=== PATIENT | male | born 1980 | race African-American/Black ===

== ENCOUNTER 2022-04-07 20:44 | Emergency (ER) | payer MEDICAID, SELFPAY ==
[2022-04-07 20:45] VITALS: BP 134/78; PULSE 88; RESP 16; TEMP 37.2; O2SAT 97; BMI 20.9
--- NOTE | 2022-04-07 21:03 | EDS_ITS ---
HPI History of Present Illness Chief Complaint: Laceration Detail of Chief Complaint: Avulsion tip of left index finger volar surface Informant: patient Onset/Context/Timing Onset: Yesterday Context: Sudden Onset Timing: Intermittent Quality of Pain: Dull Current Severity: Gone Maximum Severity: Mild Associated Symptoms Associated Symptoms: Negative for Parasthesia, Weakness or Loss of Funtion Narrative Narrative: Presents because of persistent bleeding volar fat pad left index finger. He was cutting potatoes at home and this happened. Tetanus is unknown. Denies paresthesia, anesthesia or motor weakness. Tetanus Immunization: Unknown Prior similar symptoms: No Recent Illness/Hospitalization: No PFSH PFSH Medical History no medical history no medical history Allergy/AdvReac Type Severity Reaction Status Date / Time No Known Allergies Allergy Verified 04/07/22 20:47 Surgical History History of knee surgery Social History (Updated 04/07/22 @ 21:[address] Balaji Nicole MD) household members: none Smoking Status: Current every day smoker tobacco type: cigarettes substance use type: does not use ROS ROS ED Constitutional Constitutional ED: Denies chills or fever(s) Musculoskeletal Musculoskeletal: Denies arthralgias, back pain, myalgias or neck pain Integumentary Reports other Details: Skin avulsion volar side left index finger Neurologic Neurologic: Denies paresthesias or weakness Psychiatric Psychiatric: Denies anxiety or depression Hematologic/Lymphatic Hematologic/Lymphatic: Denies easy bleeding, easy bruising or lymphadenopathy EXAM Physical Exam Const Vital Signs: 04/07/22 20:45 Temperature 98.9 F Temperature Source Temporal Pulse Rate 88 Respiratory Rate 16 Blood Pressure 134/78 H Blood Pressure Mean 96 Pulse Ox 97 Oxygen Delivery Method Room Air Positive well nourished and well developed General Appearance ED: well developed and NAD HEENT Reports moist mucous membranes normocephalic and atraumatic Eyes PERRL Eyes Narrative: Extract muscles intact sclerae anicteric Neck full ROM Resp normal respiratory effort Cardio regular rate and regular rhythm Extremity full ROM; Negative for normal to inspection Extremity Narrative: The extensor commonest tendon is intact. The flexor digitorum superficialis and flexor to toward profundus are intact. Normal two-point discrimination. No subungual hematoma noted. There is avulsed tissue radial volar side of the left index finger that is 3 x 6 mm. Presently there is no active bleeding. Neuro oriented x3, CN's II-XII intact bilaterally and moves all extremities Sensorium / Orientation: alert Psych mental status grossly normal Skin Skin Narrative: Avulsion as previously described no evidence of infection MDM MDM MDM Narrative Medical decision making narrative: Patient with avulsion tip of the index finger. Wound care and tetanus. Discharge Plan Triage Chief Complaint: Laceration ED Provider: Balaji Nicole Dx/Rx/DC Orders Clinical Impression: Avulsion of finger tip Instructions: ED Skin Avulsion Primary Care Provider: Care Physician,No Primary Referrals: Susie Melgar [Non-Staff] - As Needed Care Physician,No Primary [Primary Care Provider] - Activity Restrictions/Additional Instructions: 1. Do not remove dressing for 48 to 72 hours 2. Keep finger absolutely clean and dry for the next 3 days 3. There is any concern for infection do not hesitate to return or follow-up at the [facility] Disposition Disposition: Home, Self Care
[2022-04-07] MEDS: Diphth,Pertuss(Acell),Tet Vac 0.5 ML Vial IM (21:16)
== END 2022-04-07 21:29 | disposition home or self-care (01) ==
PROVIDERS: Emergency Provider Emergency Medicine; Visit Provider Emergency Medicine
DX: S61.211A Laceration without foreign body of left index finger without damage to nail, initial encounter (principal); F17.210 Nicotine dependence, cigarettes, uncomplicated; Z23 Encounter for immunization; X58.XXXA Exposure to other specified factors, initial encounter
CPT/HCPCS: 90715; 99282

== ENCOUNTER 2022-09-24 12:23 | Emergency (ER) | payer MEDICAID, SELFPAY ==
[2022-09-24 12:24] VITALS: BP 128/85; PULSE 60; RESP 18; TEMP 36; O2SAT 100; BMI 21.9
--- NOTE | 2022-09-24 12:39 | EDS_ITS ---
HPI HPI - GI History of Present Illness Chief Complaint: GI Bleed Detail of Chief Complaint: Abdominal cramping. Bright red blood with stool. Informant: patient Abdominal Pain/Flank Pain Onset: Today and Weeks Context: Gradual Onset Timing: Intermittent Quality: Cramping Location: Diffuse Current Severity: Gone Maximum Severity: Mild Worsened by: Nothing Relieved by: Nothing Nausea/Vomiting/Emesis GI Symptom: Negative for Nausea or Vomiting Diarrhea/Melena/Hematochezia GI Symptom: Positive for Diarrhea and Hematochezia Associated Symptoms Associated Symptoms: Negative for Dysuria, Frequency, Hematuria or Urgency Narrative Narrative: 42-year-old male no seen past medical or surgical history. States has had intermittent abdominal cramping for weeks. Last night he noticed a small amount of blood with loose stools. No melena. No hematemesis. No nausea or vomiting. No weight change. He has never had any abdominal surgeries. Denies any dysuria. No fever. Prior similar symptoms: Yes Recent Illness/Hospitalization: No PFSH PFSH Medical History no medical history no medical history Home Medications NK 09/24/22 [History Last Taken Unknown] Allergy/AdvReac Type Severity Reaction Status Date / Time No Known Allergies Allergy Verified 09/24/22 12:25 Family History no significant family his Surgical History History of knee surgery Social History household members: none Smoking Status: Current every day smoker tobacco type: cigarettes substance use type: does not use ROS ROS ED ROS Narrative Abdominal cramping. Diarrhea. Bright red blood per rectum small amount today. Review of Systems ROS Unobtainable: Denies due to encephalopathy Constitutional Constitutional ED: Denies chills or fever(s) ENT ENT ED: Denies ear pain Cardiovascular Cardiovascular: Denies chest pain Respiratory/Chest Respiratory/Chest: Denies cough or dyspnea Gastrointestinal Gastrointestinal: Reports abdominal pain and diarrhea; Denies constipation, melena, nausea or vomiting Genitourinary Genitourinary ED: Denies dysuria or hematuria Musculoskeletal Musculoskeletal: Denies arthralgias or back pain Integumentary Denies abscess or Abrasions Neurologic Neurologic: Denies headache(s) Psychiatric Psychiatric: Denies anxiety Endocrine Endocrinology: Denies polydipsia Hematologic/Lymphatic Hematologic/Lymphatic: Denies easy bleeding Allergic/Immunologic Allergic/Immunologic ED: Denies mouth swelling or tongue swelling EXAM Physical Exam Narrative Exam Narrative: -year-old male ambulatory distress. Vital signs stable afebrile. Right knee exam did have marked. He acknowledges an epicondylitis clear to auscultation bilaterally. Heart regular rhythm rate about 60 no murmur. Abdomen soft, nontender, nondistended, normal bowel sounds no peritoneal signs. No hernia or mass. No right upper or right lower quadrant tenderness. Moving all 4 extremities. Nontender no edema. Back nontender. Neurologically is awake alert. Normal exam. Anal exam he has 1 very small hemorrhoid that is nontender. Nonthrombosed. Not bleeding. Const Vital Signs: 09/24/22 12:24 Temperature 96.8 F L Temperature Source Temporal Pulse Rate 60 Respiratory Rate 18 Blood Pressure 128/85 H Blood Pressure Mean 99 Pulse Ox 100 Oxygen Delivery Method Room Air Positive well nourished and well developed; Negative for obese, cachectic, contractures or unkempt General Appearance ED: well developed and NAD; Negative for unkempt, cachectic, contractures or pallor Nutritional Appearance: Negative for cachectic or obese HEENT Reports moist mucous membranes; Denies dry mucous membranes normocephalic and atraumatic; Negative for trauma or tenderness Mouth ED: No dry mucous membranes Mouth: No dry mucous membranes Eyes PERRL and EOMs intact bilaterally General Eye ED: Negative for pale conjunctiva or scleral icterus Neck no lymphadenopathy, supple and no JVD General: Negative for tenderness Carotids: Negative for other Lymph Lymphatic: Negative for other Resp normal respiratory effort and clear to auscultation bilaterally Effort and Inspection: Negative for respiratory distress Auscultation: Negative for rales, rhonchi or wheezes Cardio regular rate, regular rhythm, S1 normal heart sound, S2 normal heart sound and no murmurs Rate: Negative for bradycardia or tachycardic Rhythm: Negative for abnormal rhythm GI non-tender, non-distended and no masses Inspection: Negative for abdominal distention Auscultation: normoactive bowel sounds Palpation: soft; Negative for tender, guarding, rigid, hepatomegaly, splenomegaly, hernia, mass, pulsatile mass or rebound tenderness present Back/Spine no CVA tenderness General Back: Negative for CVA tenderness Cervical Spine: Negative for cervical spine tenderness Thoracic Spine / Upper Back: Negative for thoracic spinal tenderness Lumbar Spine / Lower Back: Negative for lumbar spinal tenderness Coccyx: Negative for other Extremity full ROM General Extremety ED: Negative for edema or tenderness General Extremity: Negative for edema Neuro CN's II-XII intact bilaterally Sensorium / Orientation: alert, oriented to person, oriented to place, oriented to time and orientation impaired; Negative for confused, lethargic or stuporous Motor Exam: strength 5/5 throughout Psych mental status grossly normal and thought process normal Appearance: Negative for unkempt Attitude: No agitated Mood & Affect: Negative for depressed Skin no wounds General Skin Exam: Negative for jaundice or pallor Lesions: no lesions Rashes: no rashes Trauma: Negative for abrasion Nails: Negative for discolored MDM MDM MDM Narrative Medical decision making narrative: Young male with crampy abdominal pain. Loose stools and diarrhea and bright red blood last night. Small amount. Exam benign. Screening labs to be obtained. Patient's inflammatory bowel disease is in the differential. He does not need imaging at this time. This clinically is not appendicitis or gallbladder disease. Labs are being obtained. Repeat exam at 1:51 PM patient doing well. Abdomen is benign. He was treated with some Zofran for nausea and Toradol for discomfort. His abdomen is completely benign at this time. He and I discussed all his test results. To be discharged home with outpatient follow-up. He has no primary care physician will be referred to [facility]. Lab Data Attestation: I reviewed the patient's lab results. Lab results narrative: CBC normal white count 6.9. H&H of 14.4 and 41. Platelets 198. Electrolytes unremarkable gap of 4 normal BUN of 10 creatinine 0.8. Normal liver enzymes. Lipase is only 59. Labs: Laboratory Results - last 24 hr 09/24/22 09/24/22 12:45 12:45 WBC 6.9 RBC 4.51 L Hgb 14.4 Hct 41.1 MCV 91.1 MCH 31.9 MCHC 35.0 RDW Std Deviation 46.2 H RDW Coeff of Daren 13.6 Plt Count 198 MPV 10.8 Immature Gran % (Auto) 0.100 Neut % (Auto) 63.3 Lymph % (Auto) 25.0 [place] % (Auto) 9.4 Eos % (Auto) 1.9 Baso % (Auto) 0.3 Absolute Neuts (auto) 4.4 Absolute Lymphs (auto) 1.73 Nucleated RBC % 0 Sodium 141 Potassium 4.1 Chloride 109 H Carbon Dioxide 28.0 Anion Gap 4 L BUN 10 Creatinine 0.82 Estim Creat Clear Calc 120.62 Est GFR (MDRD) Af Amer 133 Est GFR (MDRD) Non-Af 110 BUN/Creatinine Ratio 12.2 Glucose 99 Calcium 8.7 Total Bilirubin 0.20 AST 14 L ALT 19 Alkaline Phosphatase 38 L Total Protein 6.7 Albumin 3.6 Globulin 3.1 Albumin/Globulin Ratio 1.2 Lipase 59 L Discharge Plan Triage Chief Complaint: GI Bleed ED Provider: Adam Joseph Dx/Rx/DC Orders Clinical Impression: Abdominal pain Instructions: Abdominal Pain Prescriptions: No Action NK Primary Care Provider: Care Physician,No Primary Referrals: Khoi Knott MD [Med Staff - Medical Billing Coder] - As soon as possible Care Physician,No Primary [Primary Care Provider] - Activity Restrictions/Additional Instructions: All your lab work was unremarkable today. Call and follow-up with [facility], Dr. Khoi Knott's office to be set up for an appointment to obtain a primary care physician. Disposition Disposition: Home, Self Care
[2022-09-24 12:58] LABS: Absolute Lymphocyte Count 1.73 X10^3/uL (0.83-4.51); Absolute Neutrophil Count 4.4 X10^3/uL (2.0-7.7); Basophil# 0.02 X10^3/uL; Basophil% 0.3 % (0-1); Eosinophil# 0.13 X10^3/uL; Eosinophils% 1.9 % (0-5); Hematocrit 41.1 % (40-54); Hemoglobin 14.4 g/dL (13.0-16.5); Lymphocyte # 1.73 X10^3/ul (0.83-4.51); Mean Corpuscular Hgb 31.9 pg (27.0-32.0); Mean Corpuscular Volume 91.1 fL (80-94); Mean Platelet Vol. 10.8 fl (6.2-12.0); Monocyte# 0.65 X10^3/uL; Monocyte% 9.4 % (0-10); NRBC Flagged by Analyzer 0 % (0-5); Neutrophil # 4.39 X10^3/uL (2.7-7.7); Neutrophil % 63.3 % (47-70); Platelet Count 198 K/mm3 (150-450); RBC Distribution Width CV 13.6 % (11.6-14.6); RBC Distribution Width SD 46.2 fl (35.1-43.9); Red Blood Count 4.51 M/mm3 (4.6-6.2); White Blood Count 6.9 K/mm3 (4.4-11.0)
[2022-09-24 13:14] LABS: ALB/GLOB Ratio 1.2 RATIO (0.9-2.4); AST(SGOT) 14 U/L (15-37); Alanine Aminotransfer ALT/SGPT 19 U/L (16-61); Albumin, Serum 3.6 g/dL (3.2-5.0); Alkaline Phosphatase 38 U/L (45-117); Anion Gap 4 (5-15); BUN 10 mg/dL (7-18); BUN/Creat Ratio 12.2 RATIO (10-20); Calcium,Total 8.7 mg/dL (8.5-10.1); Chloride 109 mmol/L (98-107); Creatinine, Serum 0.82 mg/dL (0.70-1.30); EST Glomerular Filtration Rate 110 mL/min (>60); Est Glom Filt Rate - Afr Amer 133 mL/min (>60); Estimated Creatinine Clearance 120.62 ml/min; Globulin 3.1 g/dL (2.2-4.2); Glucose 99 mg/dL (74-106); Lipase 59 U/L (73-393); Potassium 4.1 mmol/L (3.5-5.1); Protein, Total 6.7 g/dL (6.4-8.2); Sodium Level 141 mmol/L (136-145)
[2022-09-24] MEDS: Ondansetron 4 MG/2 ML Vial IV (13:22)
[2022-09-24] MEDS: Ketorolac 15 MG/ML Vial IV (13:22)
== END 2022-09-24 14:01 | disposition home or self-care (01) ==
PROVIDERS: Emergency Provider Emergency Medicine; Visit Provider Emergency Medicine
DX: R10.9 Unspecified abdominal pain (principal); K92.2 Gastrointestinal hemorrhage, unspecified; F17.210 Nicotine dependence, cigarettes, uncomplicated
CPT/HCPCS: 80053; 83690; 85025; 96374; 96375; 99283; A4216; J2405

== ENCOUNTER 2025-08-13 13:32 | Emergency (ER) | payer MEDICAID, SELFPAY ==
[2025-08-13 13:33] VITALS: BP 111/71; PULSE 82; RESP 14; TEMP 36.5; O2SAT 96; BMI 22.1
--- NOTE | 2025-08-13 16:58 | EX.ED.DYSGE1 ---
HPI History of Present Illness Chief Complaint: Wound Informant: patient Narrative Narrative: Patient is a 45-year-old male with no significant PMHx presenting with a bubble near the anus and rectal bleeding. - Reports discomfort around the anus for one week, with a noticeable bubble for four days. Describes the sensation as more uncomfortable than painful, though it can become painful at times, like when sitting certain ways. - Denies any discharge or bleeding from the bubble. - Reports rectal bleeding after bowel movements but not mixed in, described as mild amt red blood dripping after defecation, ongoing and intermittent for approximately six months. - Denies abdominal pain, syncope, or recent constipation with hard stools. Denies straining during bowel movements. No known history of hemorrhoids. - History of heavy alcohol consumption, which he associated with occasional rectal bleeding; has reduced alcohol intake recently and has not observed bleeding related to this. - No history of endoscopic evaluation; denies any other significant health issues. PFSH PFSH no medical history Home Medications ?Medication ?Instructions ?Recorded ?Last Taken ?Type hydrocortisone 2.5 % topical cream 1 applic [place] QHS PRN hemorrhoids 08/13/25 Unknown Rx with perineal applicator #30 grams (Proctosol HC) Allergy/AdvReac Type Severity Reaction Status Date / Time No Known Allergies Allergy Verified 08/13/25 13:33 Family History no significant family his Surgical History History of knee surgery Social History household members: none Smoking Status: Current every day smoker tobacco type: cigarettes substance use type: does not use ROS ROS ED Constitutional Constitutional ED: Denies chills or fever(s) Eyes Eyes: Denies change in vision or diplopia ENT ENT ED: Denies rhinorrhea or sore throat Cardiovascular Cardiovascular: Denies chest pain, lightheadedness, palpitations or syncope Respiratory/Chest Respiratory/Chest: Denies cough or dyspnea Gastrointestinal Gastrointestinal: Reports as per HPI and rectal bleeding; Denies abdominal pain, diarrhea, nausea or vomiting Genitourinary Genitourinary ED: Denies dysuria or hematuria Musculoskeletal Musculoskeletal: Denies back pain or neck pain Integumentary Denies abscess or rash Neurologic Neurologic: Denies headache(s), paresthesias or weakness Psychiatric Psychiatric: Denies anxiety or suicidal thoughts EXAM Physical Exam Const Vital Signs: 08/13/25 13:33 Temperature 97.7 F L Temperature Source Temporal Pulse Rate 82 Respiratory Rate 14 Blood Pressure 111/71 Blood Pressure Mean 84 Pulse Ox 96 Oxygen Delivery Method Room Air Positive well nourished and well developed General Appearance ED: well developed and NAD HEENT Reports moist mucous membranes normocephalic and atraumatic Eyes PERRL and EOMs intact bilaterally Neck full ROM and supple Resp normal respiratory effort GI non-tender and non-distended Auscultation: normoactive bowel sounds Palpation: soft Narrative: On rectal exam, there is a very small subcentimeter nonbleeding nonthrombosed nontender external hemorrhoid at the 9 o'clock position. No fissures or other abnormalities. No other perianal tenderness. Extremity normal to inspection Neuro oriented x3, CN's II-XII intact bilaterally and no sensory deficits noted Sensorium / Orientation: awake and alert Motor Exam: strength 5/5 throughout Skin no rashes or lesions noted and no wounds MDM MDM MDM Narrative Medical decision making narrative: Assessment: The patient is a 45-year-old male presenting for a small perianal ?bubble? and intermittent bright-red bleeding noted after bowel movements for approximately six months. Exam shows a pea-sized, non-thrombosed external hemorrhoid without active bleeding; no abdominal pain, syncope, or other symptoms suggestive of significant anemia. Presentation and exam are most consistent with external hemorrhoid?related bleeding; not likely to be infectious/abscess since really nontender. While another colonic source of intermittent rectal bleeding cannot be excluded without endoscopic evaluation, current findings and history favor hemorrhoidal etiology, and absence of concerning features obviates emergent laboratory work today. Plan: - Prescribed rectal hydrocortisone 1% cream with applicator; instruct to apply internally and externally once or twice daily for 1?2 weeks. - Provided hemorrhoid care education, including avoidance of straining and heavy lifting. - No emergent lab work indicated given lack of anemia symptoms. - Referred for outpatient follow-up with Dr. Gonzalez (unassigned PCP list) for further evaluation if bleeding persists or worsens. - Discharged home in stable condition. Portions of this note were generated using voice recognition software ([employer]). I have reviewed the contents and every effort has been made to ensure accuracy; however, inadvertent errors in grammar, spelling, punctuation, or word choice may occur, that were not noted before signing the document and should not alter the intended clinical meaning. Discharge Plan Triage Chief Complaint: Wound ED Provider: Candido Hernandez Dx/Rx/DC Orders Clinical Impression: External hemorrhoids without complication, Painless rectal bleeding Instructions: ED Hemorrhoids Prescriptions: New hydrocortisone [Proctosol HC] 2.5 % cream with perineal applicator 1 applic [place] QHS PRN (Reason: hemorrhoids) Qty: 30 0RF Primary Care Provider: Care Physician,No Primary Referrals: Prem Gonzalez DO [Med Staff - Supervisor [facility]] Print Language: Turkish Disposition Disposition: Home, Self Care
--- OUTSIDE RECORDS SUMMARY | 2025-08-13 17:10 | XMS RPT_ITS | CCD ---
Author Organization [facility] Care Team Providers Care Elevator Builder Name Role Phone ANIKA VICENTE Unavailable Unavailable Unavailable Primary Care Provider Adam Mendoza Attending Unavailable Care Physician, No Primary Primary Care Unava ilable Nicole, Balaji Attending Unavailable Care Physician, No Primary Primary Care Unava ilable Medications Current Medications Medication Drug Class(es) Dates Sig (Normalized) Sig (Original) doxycycline monohydrate 100 mg oral capsule (3 sources) Tetracycline-clas s Drug Start: 12-27-2021 End: 01-03-2022 take 1 capsule by mouth twice daily doxycycline monohydrate (MONODOX) 100 mg capsule Take 1 capsule by mouth twice daily for 7 days. 14 capsule 0 12/27/2021 01/03/2022 Active Comment on above: Take 1 capsule by [facility] twice daily for 7 days. Completed/Discontinued Medications Medication Drug Class(es) Dates Sig (Normalized) Sig (Original) cefTRIAXone 500 mg injection (1 source) Cephalosporin Antibacterial Start: 12-27-2021 End: 12-27-2021 cefTRIAXone 500 mg intramuscular injection (ROCEPHIN) Start: 12-27-2021 End: 12-27-2021 cefTRIAXone 500 mg intramusc ular injection (ROCEPHIN) Problems Active Problems Problem Classification Problem Date Documented Da te Episodic/Chronic Abdominal pain (1 source) Abdominal pain; Translations: [Unspecified abdominal pain] 09-24-2022 Episodic Gastrointestinal hemorrhage (1 source) Gastrointestinal hemorrhage, unspecified; Translations: [Gastrointestinal hemorrhage, unspecified] Onset: Episodic Genitourinary symptoms and ill-defined conditions (2 sources) Dysuria; Translations: [Painful micturition, unspecified] Episodic Other upper respiratory infections (1 source) Acute frontal sinusitis, unspecified; Translations: [Acute frontal sinusitis, unspecified] Onset: 8 Episodic Past or Other Problems Problem Classification Problem Date Documented Da te Episodic/Chronic Open wounds of extremities (2 sources) Open wound of finger; Translations: [Unspecified open wound of unspecified finger without damage to nail, initial encounter] Onset: 04-12-2022 04-15-2022 Episodic Results Test Name Value Interpretation Reference Range Facility Absolute lymphocyte countOrd ered By: Dr. Joseph on 09-24-2022 Lymphocytes Auto (Unsp spec) [#/Vol] 1.73 10*3/uL 0.83-4.51 [facility] Basophil percentageOrdered B y: Dr. Joseph on 09-24-2022 Basophils/100 WBC (Bld) 0.3 % 0-1 [facility] Bilirubin [Mass/Vol] 0.20 mg/dL 0.20-1.00 [facility] Comment on above: For patients on eltr ombopag therapy, use of Dimension [place] TBIL is not recommended. Chloride [Moles/Vol] 109 mmol/L 98-107 [facility] Eosinophils/100 WBC (Bld) 1.9 % 0-5 [facility] Glucose [Mass/Vol] 99 mg/dL 74-106 [facility] Neutrophils (Bld) [#/Vol] 4.4 10*3/uL 2.0-7.7 [facility] Neutrophils/100 WBC (Bld) 63.3 % 47-70 [facility] Potassium [Moles/Vol] 4.1 mmol/L 3.5-5.1 [facility] Protein [Mass/Vol] 6.7 g/dL 6.4-8.2 [facility] Sodium [Moles/Vol] 141 mmol/L 136-145 [facility] WBC (Bld) [#/Vol] 6.9 10*3/uL 4.4-11.0 [facility] Blood erythrocytes count (nu mber/volume)Ordered By: Dr. Joseph on 09-24-2022 RBC (Bld) [#/Vol] 4.51 10*6/uL 4.6-6.2 [facility] Blood hemoglobin measurement (mass/volume)Ordered By: Dr. Joseph on 09-24-2022 Hemoglobin (Bld) [Mass/Vol] 14.4 g/dL 13.0-16.5 [facility] Blood lymphocytes/100 leukoc ytesOrdered By: Dr. Joseph on 09-24-2022 Lymphocytes/100 WBC (Bld) 25.0 % 19-41 [facility] Blood monocytes/100 leukocyt esOrdered By: Dr. Joseph on 09-24-2022 Monocytes/100 WBC (Bld) 9.4 % 0-10 [facility] Blood platelet mean volumeOr dered By: Dr. Joseph on 09-24-2022 Platelet mean volume (Bld) [Entitic vol] 10.8 fL 6.2-12.0 [facility] CBC W/Diff, Automatedon 09-14 Absolute Lymph 1.73 X10 3/uL Normal 0.83-4.51 [facility] Comment on above: Performed By: #### L 501.2450, L500.4050, L100.0100 #### [facility] [address] [place], [address] Absolute Neut 4.4 X10 3/uL Normal 2.0-7.7 [facility] Comment on above: Performed By: #### L 501.2450, L500.4050, L100.0100 #### [facility] [address] [place], [address] Basophils/100 WBC (Bld) 0.3 % Normal 0-1 [facility] Comment on above: Performed By: #### L 501.2450, L500.4050, L100.0100 #### [facility] [address] [place], [address] Eosinophils/100 WBC (Bld) 1.9 % Normal 0-5 [facility] Comment on above: Performed By: #### L 501.2450, L500.4050, L100.0100 #### [facility] [address] [place], [address] Erythrocyte distribution width (RBC) [Ratio] 13.6 % Normal 11.6-14.6 [facility] Comment on above: Performed By: #### L 501.2450, L500.4050, L100.0100 #### [facility] [address] [place], [address] Hematocrit (Bld) [Volume fraction] 41.1 % Normal 40-54 [facility] Comment on above: Performed By: #### L 501.2450, L500.4050, L100.0100 #### [facility] [address] [place], [address] Hemoglobin (Bld) [Mass/Vol] 14.4 g/dL Normal 13.0-16.5 [facility] Comment on above: Performed By: #### L 501.2450, L500.4050, L100.0100 #### [facility] [address] [place], [address] IG% 0.100 Normal 0.0-0.9 [facility] Comment on above: Result Comment: IG% - Immature Granulocytes (promyelocytes, myelocytes and metamyelocytes) > 1% indicates that a LEFT SHIFT is Present. Performed By: #### L 501.2450, L500.4050, L100.0100 #### [facility] [address] [place], [address] Lymphocytes/100 WBC (Bld) 25.0 % Normal 19-41 [facility] Comment on above: Performed By: #### L 501.2450, L500.4050, L100.0100 #### [facility] [address] [place], [address] MCH (RBC) [Entitic mass] 31.9 pg Normal 27.0-32.0 [facility] Comment on above: Performed By: #### L 501.2450, L500.4050, L100.0100 #### [facility] [address] [place], [address] MCHC (RBC) [Mass/Vol] 35.0 g/dL Normal 32-36 [facility] Comment on above: Performed By: #### L 501.2450, L500.4050, L100.0100 #### [facility] [address] [place], [address] MCV (RBC) [Entitic vol] 91.1 fL Normal 80-94 [facility] Comment on above: Performed By: #### L 501.2450, L500.4050, L100.0100 #### [facility] [address] [place], [address] Monocytes/100 WBC (Bld) 9.4 % Normal 0-10 [facility] Comment on above: Performed By: #### L 501.2450, L500.4050, L100.0100 #### [facility] [address] [place], [address] Neutrophils/100 WBC (Bld) 63.3 % Normal 47-70 [facility] Comment on above: Performed By: #### L 501.2450, L500.4050, L100.0100 #### [facility] [address] [place], [address] Nucleated RBC (Bld) [#/Vol] 0 10*3/uL Normal 0-5 [facility] Comment on above: Performed By: #### L 501.2450, L500.4050, L100.0100 #### [facility] [address] [place], [address] Platelet mean volume (Bld) [Entitic vol] 10.8 fL Normal 6.2-12.0 [facility] Comment on above: Performed By: #### L 501.2450, L500.4050, L100.0100 #### [facility] [address] [place], [address] Platelets (Bld) [#/Vol] 198 10*3/uL Normal 150-450 [facility] Comment on above: Performed By: #### L 501.2450, L500.4050, L100.0100 #### [facility] [address] [place], [address] RBC (Bld) [#/Vol] 4.51 10*6/uL Low 4.6-6.2 [facility] Comment on above: Performed By: #### L 501.2450, L500.4050, L100.0100 #### [facility] [address] [place], [address] RDW SD 46.2 fl High 35.1-43.9 [facility] Comment on above: Performed By: #### L 501.2450, L500.4050, L100.0100 #### [facility] [address] [place], [address] WBC (Bld) [#/Vol] 6.9 10*3/uL Normal 4.4-11.0 [facility] Comment on above: Performed By: #### L 501.2450, L500.4050, L100.0100 #### [facility] [address] [place], [address] Comprehensive Metabolic Prof [facility] 09-24-2022 Albumin [Mass/Vol] 3.6 g/dL Normal 3.2-5.0 [facility] Comment on above: Performed By: #### L 501.2450, L500.4050, L100.0100 #### [facility] [address] [place], [address] Albumin/Globulin [Mass ratio] 1.2 {ratio} Normal 0.9-2.4 [facility] Comment on above: Performed By: #### L 501.2450, L500.4050, L100.0100 #### [facility] [address] [place], [address] ALK P 38 U/L Low 45-117 [facility] Comment on above: Performed By: #### L 501.2450, L500.4050, L100.0100 #### [facility] [address] [place], [address] ALT [Catalytic activity/Vol] 19 U/L Normal 16-61 [facility] Comment on above: Performed By: #### L 501.2450, L500.4050, L100.0100 #### [facility] [address] [place], [address] AST [Catalytic activity/Vol] 14 U/L Low 15-37 [facility] Comment on above: Performed By: #### L 501.2450, L500.4050, L100.0100 #### [facility] [address] [place], [address] Bilirubin [Mass/Vol] 0.20 mg/dL Normal 0.20-1.00 [facility] Comment on above: Result Comment: For patients on eltrombopag therapy, use of Dimension [place] TBIL is not recommended. Performed By: #### L 501.2450, L500.4050, L100.0100 #### [facility] [address] [place], [address] BUN/CRE 12.2 RATIO Normal 10-20 [facility] Comment on above: Performed By: #### L 501.2450, L500.4050, L100.0100 #### [facility] [address] [place], [address] CA,Total 8.7 mg/dL Normal 8.5-10.1 [facility] Comment on above: Performed By: #### L 501.2450, L500.4050, L100.0100 #### [facility] [address] [place], [address] Chloride [Moles/Vol] 109 mmol/L High 98-107 [facility] Comment on above: Performed By: #### L 501.2450, L500.4050, L100.0100 #### [facility] [address] [place], [address] CO2 [Moles/Vol] 28.0 mmol/L Normal 21.0-32.0 [facility] Comment on above: Performed By: #### L 501.2450, L500.4050, L100.0100 #### [facility] [address] [place], [address] Creatinine [Mass/Vol] 0.82 mg/dL Normal 0.70-1.30 [facility] Comment on above: Result Comment: The validity of the calculated GFR GFRAA in patients over 70 years has not been determined. Clinical correlation is essential. Performed By: #### L 501.2450, L500.4050, L100.0100 #### [facility] [address] [place], [address] ECRCL 120.62 ml/min Normal [facility] Comment on above: Performed By: #### L 501.2450, L500.4050, L100.0100 #### [facility] [address] [place], [address] EST GFR - AA 133 mL/min Normal >60 [facility] Comment on above: Result Comment: Afri can [place] GFR Calc Performed By: #### L 501.2450, L500.4050, L100.0100 #### [facility] [address] [place], [address] GAP 4 Low 5-15 [facility] Comment on above: Performed By: #### L 501.2450, L500.4050, L100.0100 #### [facility] [address] [place], [address] GFR/1.73 sq M.predicted among non-blacks MDRD (S/P/Bld) [Vol rate/Area] 110 mL/min/{1.73_m2} Normal >60 [facility] Comment on above: Result Comment: Non- GFR Calc Performed By: #### L 501.2450, L500.4050, L100.0100 #### [facility] [address] [place], [address] Globulin (S) [Mass/Vol] 3.1 g/dL Normal 2.2-4.2 [facility] Comment on above: Performed By: #### L 501.2450, L500.4050, L100.0100 #### [facility] [address] [place], [address] Glucose [Mass/Vol] 99 mg/dL Normal 74-106 [facility] Comment on above: Performed By: #### L 501.2450, L500.4050, L100.0100 #### [facility] [address] [place], [address] Potassium [Moles/Vol] 4.1 mmol/L Normal 3.5-5.1 [facility] Comment on above: Performed By: #### L 501.2450, L500.4050, L100.0100 #### [facility] [address] [place], [address] Sodium [Moles/Vol] 141 mmol/L Normal 136-145 [facility] Comment on above: Performed By: #### L 501.2450, L500.4050, L100.0100 #### [facility] [address] [place], [address] T PROT 6.7 g/dL Normal 6.4-8.2 [facility] Comment on above: Performed By: #### L 501.2450, L500.4050, L100.0100 #### [facility] [address] [place], [address] Urea nitrogen [Mass/Vol] 10 mg/dL Normal 7-18 [facility] Comment on above: Performed By: #### L 501.2450, L500.4050, L100.0100 #### [facility] [address] [place], [address] Determination of erythrocyte mean corpuscular volume (MCV)Ordered By: Dr. Joseph on 09-24-2022 MCV (RBC) [Entitic vol] 91.1 fL 80-94 [facility] Emergency Department Summary on 09-24-2022 Emergency Department Summary [facility] Medical Records Department [address] [place] [address] Emergency Department Summary 09/24/22 MR#: [id number] Acct: [id number] Name: BLOSSOM ALFONSO Rep #: [id number] : 1980 42 From: Adam Joseph MD PCP: Care Physician,No Primary Status:REG ER Location: ED HPI HPI - GI History of Present Illness Chief Complaint: GI Bleed Detail of Chief Complaint: Abdominal cramping. Bright red blood with stool. Informant: patient Abdominal Pain/Flank Pain Onset: Today and Weeks Context: Gradual Onset Timing: Intermittent Quality: Cramping Location: Diffuse Current Severity: Gone Maximum Severity: Mild Worsened by: Nothing Relieved by: Nothing Nausea/Vomiting/Emes is GI Symptom: Negative for Nausea or Vomiting Diarrhea/Melena/Lane tochezia GI Symptom: Positive for Diarrhea and Hematochezia Associated Symptoms Associated Symptoms: Negative for Dysuria, Frequency, Hematuria or Urgency Narrative Narrative: 42-year-old male no seen past medical or surgical history. States has had intermittent abdominal cramping for weeks. Last night he noticed a small amount of blood with loose stools. No melena. No hematemesis. No nausea or vomiting. No weight change. He has never had any abdominal surgeries. Denies any dysuria. No fever. Prior similar symptoms: Yes Recent Illness/Hospitalizat ion: No PFSH PFSH Medical History no medical history no medical history Home Medications NK 09/24/22 [History Last Taken Unknown] Allergy/AdvReac Type Severity Reaction Status Date / Time No Known Allergies Allergy Verified 09/24/22 12:25 Family History no significant family his Surgical History History of knee surgery Social History household members: none Smoking Status: Current every day smoker tobacco type: cigarettes substance use type: does not use ROS ROS ED ROS Narrative Abdominal cramping. Diarrhea. Bright red blood per rectum small amount today. Review of Systems ROS Unobtainable: Denies due to encephalopathy Constitutional Constitutional ED: Denies chills or fever(s) ENT ENT ED: Denies ear pain Cardiovascular Cardiovascular: Denies chest pain Respiratory/Chest Respiratory/Chest: Denies cough or dyspnea Gastrointestinal Gastrointestinal: Reports abdominal pain and diarrhea; Denies constipation, melena, nausea or vomiting Genitourinary Genitourinary ED: Denies dysuria or hematuria Musculoskeletal Musculoskeletal: Denies arthralgias or back pain Integumentary Denies abscess or Abrasions Neurologic Neurologic: Denies headache(s) Psychiatric Psychiatric: Denies anxiety Endocrine Endocrinology: Denies polydipsia Hematologic/Lymphati c Hematologic/Lymphati c: Denies easy bleeding Allergic/Immunologic Allergic/Immunologic ED: Denies mouth swelling or tongue swelling EXAM Physical Exam Narrative Exam Narrative: -year-old male ambulatory distress. Vital signs stable afebrile. Right knee exam did have marked. He acknowledges an epicondylitis clear to auscultation bilaterally. Heart regular rhythm rate about 60 no murmur. Abdomen soft, nontender, nondistended, normal bowel sounds no peritoneal signs. No hernia or mass. No right upper or right lower quadrant tenderness. Moving all 4 extremities. Nontender no edema. Back nontender. Neurologically is awake alert. Normal exam. Anal exam he has 1 very small hemorrhoid that is nontender. Nonthrombosed. Not bleeding. Const Vital Signs: 09/24/22 12:24 Temperature 96.8 F L Temperature Source Temporal Pulse Rate 60 Respiratory Rate 18 Blood Pressure 128/85 H Blood Pressure Mean 99 Pulse Ox 100 Oxygen Delivery Method Room Air Positive well nourished and well developed; Negative for obese, cachectic, contractures or unkempt General Appearance ED: well developed and NAD; Negative for unkempt, cachectic, contractures or pallor Nutritional Appearance: Negative for cachectic or obese HEENT Reports moist mucous membranes; Denies dry mucous membranes normocephalic and atraumatic; Negative for trauma or tenderness Mouth ED: No dry mucous membranes Mouth: No dry mucous membranes Eyes PERRL and EOMs intact bilaterally General Eye ED: Negative for pale conjunctiva or scleral icterus Neck no lymphadenopathy, supple and no JVD General: Negative for tenderness Carotids: Negative for other Lymph Lymphatic: Negative for other Resp normal respiratory effort and clear to auscultation bilaterally Effort and Inspection: Negative for respiratory distress Auscultation: Negative for rales, rhonchi or wheezes Cardio regular rate, regular rhythm, S1 normal heart sound, S2 normal heart sound and no murmurs Rate: Negative for br (more content not included)... Normal [facility] Hematocrit Auto (Bld) [Volum e fraction]Ordered By: Dr. Joseph on 09-24-2022 Hematocrit (Bld) [Volume fraction] 41.1 % 40-54 [facility] - Chemistry and C hemistry - challengeOrdered By: Dr. Joseph on 09-24-2022 ALP [Catalytic activity/Vol] 38 U/L 45-117 [facility] ALT [Catalytic activity/Vol] 19 U/L 16-61 [facility] CO2 [Moles/Vol] 28.0 mmol/L 21.0-32.0 [facility] Globulin (S) [Mass/Vol] 3.1 g/dL 2.2-4.2 [facility] Lipase [Catalytic activity/Vol] 59 U/L 73-393 [facility] Urea nitrogen/Creatinine [Mass ratio] 12.2 mg/mg 10-20 [facility] - Hematology and Cell countsOrdered By: Dr. Joseph on 09-24-2022 Erythrocyte distribution width (RBC) [Entitic vol] 46.2 fL 35.1-43.9 [facility] Erythrocyte distribution width (RBC) [Ratio] 13.6 % 11.6-14.6 [facility] Immature granulocytes/100 WBC (Bld) 0.100 % 0.0-0.9 [facility] Comment on above: IG% - Immature Granu locytes (promyelocytes, myelocytes and metamyelocytes) > 1% indicates that a LEFT SHIFT is Present. MCH (RBC) [Entitic mass] 31.9 pg 27.0-32.0 [facility] Nucleated RBC/100 WBC (Bld) [Ratio] 0 % 0-5 [facility] Lipaseon 09-24-2022 Lipase [Catalytic activity/Vol] 59 U/L Low 73-393 [facility] Comment on above: Performed By: #### L 501.2450, L500.4050, L100.0100 #### [facility] [address] [place], [address] MCHC Auto (RBC) [Mass/Vol]Or dered By: Dr. Joseph on 09-24-2022 MCHC (RBC) [Mass/Vol] 35.0 g/dL 32-36 [facility] No Panel InformationOrdered By: Dr. Joseph on 09-24-2022 Estimated Creatinine Clearance Calc 120.62 ml/min [facility] Estimated GFR (MDRD) Amer 133 mL/min >60 [facility] Comment on above: GFR Calc Estimated GFR (MDRD) Non-Af Amer 110 mL/min >60 [facility] Comment on above: Non- GFR Calc Platelets bldOrdered By: Dr. Joseph on 09-24-2022 Platelets (Bld) [#/Vol] 198 10*3/uL 150-450 [facility] Serum or plasma albumin malissa urement (mass/volume)Ordered By: Dr. Joseph on 09-24-2022 Albumin [Mass/Vol] 3.6 g/dL 3.2-5.0 [facility] Serum or plasma albumin/glob ulin mass ratioOrdered By: Dr. Joseph on 09-24-2022 Albumin/Globulin [Mass ratio] 1.2 {ratio} 0.9-2.4 [facility] Serum or plasma calcium malissa urement (mass/volume)Ordered By: Dr. Joseph on 09-24-2022 Calcium [Mass/Vol] 8.7 mg/dL 8.5-10.1 [facility] Serum or plasma creatinine m easurement (mass/volume)Ordered By: Dr. Joseph on 09-24-2022 Creatinine [Mass/Vol] 0.82 mg/dL 0.70-1.30 [facility] Comment on above: The validity of the calculated GFR & GFRAA in patients over 70 years has not been determined. Clinical correlation is essential. Serum or plasma urea nitroge n measurement (mass/volume)Ordered By: Dr. Joseph on 09-24-2022 Urea nitrogen [Mass/Vol] 10 mg/dL 7-18 [facility] Thin prep Papanicolaou smear with manual screeningOrdered By: Dr. Joseph on 09-24-2022 Thin prep Papanicolaou smear with manual screening 14 U/L 15-37 [facility] Thin prep Papanicolaou smear with manual screening 4 5-15 [facility] Emergency Department Summary on 04-07-2022 Emergency Department Summary [facility] Medical Records Department [address] [place] [address] Emergency Department Summary 04/07/22 MR#: [id number] Acct: [id number] Name: BLOSSOM ALFONSO Rep #: [id number] : 1980 42 From: Balaji Nicole MD PCP: Care Physician,No Primary Status:PRE ER Location: ED HPI History of Present Illness Chief Complaint: Laceration Detail of Chief Complaint: Avulsion tip of left index finger volar surface Informant: patient Onset/Context/Timing Onset: Yesterday Context: Sudden Onset Timing: Intermittent Quality of Pain: Dull Current Severity: Gone Maximum Severity: Mild Associated Symptoms Associated Symptoms: Negative for Parasthesia, Weakness or Loss of Funtion Narrative Narrative: Presents because of persistent bleeding volar fat pad left index finger. He was cutting potatoes at home and this happened. Tetanus is unknown. Denies paresthesia, anesthesia or motor weakness. Tetanus Immunization: Unknown Prior similar symptoms: No Recent Illness/Hospitalizat ion: No PFSH PFSH Medical History no medical history no medical history Allergy/AdvReac Type Severity Reaction Status Date / Time No Known Allergies Allergy Verified 04/07/22 20:47 Surgical History History of knee surgery Social History (Updated 04/07/22 @ 21:[address] Balaji Nicole MD) household members: none Smoking Status: Current every day smoker tobacco type: cigarettes substance use type: does not use ROS ROS ED Constitutional Constitutional ED: Denies chills or fever(s) Musculoskeletal Musculoskeletal: Denies arthralgias, back pain, myalgias or neck pain Integumentary Reports other Details: Skin avulsion volar side left index finger Neurologic Neurologic: Denies paresthesias or weakness Psychiatric Psychiatric: Denies anxiety or depression Hematologic/Lymphati c Hematologic/Lymphati c: Denies easy bleeding, easy bruising or lymphadenopathy EXAM Physical Exam Const Vital Signs: 04/07/22 20:45 Temperature 98.9 F Temperature Source Temporal Pulse Rate 88 Respiratory Rate 16 Blood Pressure 134/78 H Blood Pressure Mean 96 Pulse Ox 97 Oxygen Delivery Method Room Air Positive well nourished and well developed General Appearance ED: well developed and NAD HEENT Reports moist mucous membranes normocephalic and atraumatic Eyes PERRL Eyes Narrative: Extract muscles intact sclerae anicteric Neck full ROM Resp normal respiratory effort Cardio regular rate and regular rhythm Extremity full ROM; Negative for normal to inspection Extremity Narrative: The extensor commonest tendon is intact. The flexor digitorum superficialis and flexor to toward profundus are intact. Normal two-point discrimination. No subungual hematoma noted. There is avulsed tissue radial volar side of the left index finger that is 3 x 6 mm. Presently there is no active bleeding. Neuro oriented x3, CN's II-XII intact bilaterally and moves all extremities Sensorium / Orientation: alert Psych mental status grossly normal Skin Skin Narrative: Avulsion as previously described no evidence of infection MDM MDM MDM Narrative Medical decision making narrative: Patient with avulsion tip of the index finger. Wound care and tetanus. Discharge Plan Triage Chief Complaint: Laceration ED Provider: Balaji Nicole Dx/Rx/DC Orders Clinical Impression: Avulsion of finger tip Instructions: ED Skin Avulsion Primary Care Provider: Care Physician,No Primary Referrals: Susie Melgar [Non-Staff] - As Needed Care Physician,No Primary [Primary Care Provider] - Activity Restrictions/Additio nal Instructions: 1. Do not remove dressing for 48 to 72 hours 2. Keep finger absolutely clean and dry for the next 3 days 3. There is any concern for infection do not hesitate to return or follow-up at the [facility] Disposition Disposition: Home, Self Care What to do if you have Problems For any increased pain, shortness of breath, bleeding, nausea or vomiting, chest pain, or any unexpected problems, contact your Primary Care Provider. Call [facility] ([phone]) or report to the closest Emergency Room. Call 911 if necessary. 04/07/222113 Cosigner Signature (if applicable): CC: No Primary Care Physician Signed [facility] BLOSSOM [facility] ([id number]) 1980 M Date Time Provider Department 12/29/21 ROWENA DAVIS [facility] During your visit today, we recorded the following information about you: Rowena Davis APRN.[facility] 12/29/2021 10:33 AM Signed Patient aware of std treatment and protocol for abstinence. Rowena Davis APRN.[facility] Allergies As of Date: 12/29/2021 (No Known Allergies) Date Reviewed: 12/27/2021 Reviewed by: Kira Morin APRN.CAFETERIA TABLE ATTENDANT - Fully Assessed Reason for Visit: Results [95] Cmt: STD testing Prescriptions as of 12/29/2021 - doxycycline monohydrate (MONODOX) 100 mg capsule Take 1 capsule by mouth twice daily for 7 days. Problem List As Of Date: 12/29/2021 (None) Encounter Status:Closed [facility] BLOSSOM ALFONSO ([id number]) 1980 M Date Time Provider Department 12/28/21 ZEFERINO CALIX [facility] During your visit today, we recorded the following information about you: Zeferino Calix APRN.CNP 12/28/2021 8:15 AM Signed Tested positive for gonorrhea. Called patient and informed of results. Rocephin provided at time of exam. No sex for 2 weeks Partners must be tested. Urine culture remains pending. Allergies As of Date: 12/28/2021 (No Known Allergies) Date Reviewed: 12/27/2021 Reviewed by: Kira Morin APRN.CAFETERIA TABLE ATTENDANT - Fully Assessed Reason for Visit: Results [95] Prescriptions as of 12/28/2021 - doxycycline monohydrate (MONODOX) 100 mg capsule Take 1 capsule by mouth twice daily for 7 days. Problem List As Of Date: 12/28/2021 (None) Encounter Status:Closed by ZEFERINO CALIX on 12/28/21 [facility] Bacteria Ur Culton 2 Bacteria identified Cx Nom (U) CULTURE, URINE: No growth (<1,000 CFU/ml) [facility] Comment on above: Performed By: #### 6 30-4 #### [facility] CLIA [id number] [address] [place] [address] [place] C trach+GC DNA Ur Ql KATARINA+pro beon 12-27-2021 C. trachomatis+N. gonorrhoeae DNA KATARINA+probe Ql (U) GC AMPLIFICATION: Positive for Neisseria gonorrhoeae by amplification CHLAMYDIA AMPLIFICATION: Negative for Chlamydia trachomatis by amplification Abnormal [facility] Comment on above: Performed By: #### 4 [id number] #### [facility] CLIA [id number] [address] [place] [address] [place] CNOVon 12-27-2021 CNOV Office Visit ([facility]) BLOSSOM ALFONSO ([id number]) 1980 M Date Time Provider Department 12/27/21 1:00 PM KIRA MORIN [facility] During your visit today, we recorded the following information about you: Temperature Pulse Respiration Blood pressure 99.1 degrees 86/minute 16/minute 120/72 Weight 70.3 kg Kira APRN. MikelCAFETERIA TABLE ATTENDANT 12/27/2021 1:32 PM Signed Subjective HPI Nontoxic-appearing male presents urgent care chief complaint possible STD exposure. Patient states he was sexually active with a new partner 1 week ago. Did not use protection. Presents today due to new onset penile drainage. Patient states he is having white discharge and slight burning with urination. History of STDs. This feels similar. Denies any OTC medication use. Denies any fever body aches chills nausea vomiting abdominal pain. Denies any testicular pain swelling or rashes. Denies any change in bowel or bladder habit. Past medical history prescription medication use and allergies reviewed. .Patient presents with: STD: gc testing, possible exposure History reviewed. No pertinent past medical history. History reviewed. No pertinent surgical history. ALLERGIES Patient has no known allergies. MEDICATIONS No prescriptions on file. History reviewed. No pertinent family history. Social History Tobacco Use - Smoking status: Current Every Day Smoker - Smokeless tobacco: Never Used Substance Use Topics - Alcohol use: Not on file - Drug use: Not on file BP 120/72 Pulse 86 Temp 37.3 ?C (99.1 ?F) Resp 16 Wt 70.3 kg (155 lb) SpO2 97% Review of Systems Constitutional: Negative for chills, fever and malaise/fatigue. HENT: Negative for congestion, ear discharge, ear pain, sinus pain and sore throat. Eyes: Negative for blurred vision, pain, discharge and redness. Respiratory: Negative for cough, hemoptysis, sputum production, shortness of breath, wheezing and stridor. Cardiovascular: Negative for chest pain. Gastrointestinal: Negative for abdominal pain, diarrhea, nausea and vomiting. Genitourinary: Positive for dysuria. Negative for flank pain, frequency, hematuria and urgency. Musculoskeletal: Negative for myalgias. Skin: Negative for itching and rash. Neurological: Negative for dizziness and headaches. Objective Physical Exam Constitutional: General: He is not in acute distress. Appearance: He is not diaphoretic. HENT: Head: Normocephalic. Mouth/Throat: Mouth: Mucous membranes are moist. Pharynx: Oropharynx is clear. No oropharyngeal exudate or posterior oropharyngeal erythema. Eyes: Conjunctiva/sclera: Conjunctivae normal. Pupils: Pupils are equal, round, and reactive to light. Cardiovascular: Rate and Rhythm: Normal rate and regular rhythm. Heart sounds: Normal heart sounds. Pulmonary: Effort: Pulmonary effort is normal. No tachypnea, accessory muscle usage or respiratory distress. Breath sounds: Normal breath sounds. No stridor. Abdominal: Palpations: Abdomen is soft. Tenderness: There is no abdominal tenderness. Genitourinary: Penis: Discharge present. Testes: Normal. Right: Tenderness or swelling not present. Left: Tenderness or swelling not present. Epididymis: Right: Normal. Left: Normal. Musculoskeletal: Cervical back: Normal range of motion and neck supple. No rigidity or tenderness. Lymphadenopathy: Cervical: No cervical adenopathy. Skin: General: Skin is warm and dry. Neurological: Mental Status: He is alert and oriented to person, place, and time. ASSESSMENT/PLAN: 1. Pain with urination - ICD9: 788.1, ICD10: R30.9 (primary diagnosis) - UA DIP, URINE (POC) - GC/CHLAMYDIA AMPLIF, URINE - CEFTRIAXONE 500 MG SOLUTION FOR INJECTION - URINE CULTURE 2. Penile discharge - ICD9: 788.7, ICD10: R36.9 Urine indicated small amount of blood and leukocytes. With patient's penile drainage and unprotected sexual intercourse patient will be placed on doxycycline and Rocephin. 500 Rocephin administered in office. Patient was educated on supportive therapies. Patient will follow up with primary care provider as needed. Patient was instructed to immediately proceed to emergency room for any new, worsening, or symptoms lasting longer than anticipated. The patient's clinical presentation is otherwise unremarkable at this time. Based on exam and clinical finding, the patient is stable for discharge. Plan of care was discussed with patient. Patient verbalizes understanding and agrees to plan of care. This note was generated using IM-Sense software. It may contain errors in wording, punctuation, or spelling. Kira Morin APRN.BRADEN Referring Provider: SELF [200] Allergies As of Date: 12/27/2021 (No Known Allergies) Date Reviewed: 12/27/2021 Reviewed by: Kira Morin APRN.CAFETERIA TABLE ATTENDANT - Fully Assessed Reason for Visit: STD [102] Cmt: gc te (more content not included)... [facility] UA DIP, URINE (POC)on 2021 BILIRUBIN UA (POCT) Negative Negative [facility] CLARITY UA (POCT) Cloudy [facility] COLOR UA (POCT) Dark yellow [facility] GLUCOSE UA (POCT) Negative Negative mg/dL [facility] HEMOGLOBIN/BLOOD UA (POCT) Small Abnormal Negative [facility] KETONE UA (POCT) Negative Negative mg/dL [facility] LEUKOCYTES UA (POCT) Small Abnormal Negative [facility] NITRITE UA (POCT) Negative Negative [facility] PH UA (POCT) 7.0 4.5 - 8.0 [facility] Protein Ql (U) Negative Negative mg/dL [facility] SPECIFIC GRAVITY UA (POCT) 1.025 1.005 - 1.030 [facility] UROBILINOGEN UA (POCT) 0.2 E.U./dL Normal E.U./ dL [facility] ED Provider Noteon 8 HIM IP Note OR Mutual Fund Analyst Normal [facility] Rapid A Strep Antigenon 10-13 Rapid strep test Negative Normal Negative [facility] Comment on above: Result Comment: Nega tive for Strep A nucleic acid. Vital Signs Date Time Vital Sign Value Performing Clinician Rashida corbin 09-24-2022 12:24-050 Body height 180.34 cm [facility] 09-24-2022 12:24-0500 Body mass index (BMI) [Ratio] 21.9 kg/m2 [facility] 09-24-2022 12:24-050 Body temperature 96.8 [degF] [facility] 09-24-2022 12:24-0500 Body weight 71.21 kg [facility] 09-24-2022 12:24-0500 Diastolic blood pressure 85 mm[Hg] [facility] 09-24-2022 12:24-0500 Heart rate 60 /min [facility] 09-24-2022 12:24-0500 Respiratory rate 18 /min [facility] 09-24-2022 12:24-0500 SaO2% (BldA) [Mass fraction] 100 % [facility] 09-24-2022 12:24-0500 Systolic blood pressure 128 mm[Hg] [facility] 12-27-2021 12:58-0400 Body temperature 99.1 [degF] Kira Morin MAILING MANAGER.CAFETERIA TABLE ATTENDANT Work Phone: [facility] 12-27-2021 12:58-0400 Body weight 70.31 kg Kira Morin MAILING MANAGER.CAFETERIA TABLE ATTENDANT Work Phone: [facility] 12-27-2021 12:58-0400 Diastolic blood pressure 72 mm[Hg] Kira Morin MAILING MANAGER.CAFETERIA TABLE ATTENDANT Work Phone: [facility] 12-27-2021 12:58-0400 Heart rate 86 /min Kira Morin MAILING MANAGER.CAFETERIA TABLE ATTENDANT Work Phone: [facility] 12-27-2021 12:58-0400 Respiratory rate 16 /min Kira Morin MAILING MANAGER.CAFETERIA TABLE ATTENDANT Work Phone: [facility] 12-27-2021 12:58-0400 SaO2% (BldA) [Mass fraction] 97 % Kira Morin MAILING MANAGER.CAFETERIA TABLE ATTENDANT Work Phone: [facility] 12-27-2021 12:58-0400 Systolic blood pressure 120 mm[Hg] Kira Morin MAILING MANAGER.CAFETERIA TABLE ATTENDANT Work Phone: [facility] Encounters Encounter Date Encounter Type Care Provider Facility Start: 09-24-2022 End: 09-24-2022 Emergency department patient visit Adam Joseph Facility:[facility] Start: 09-24-2022 End: 09-24-2022 Emergency department patient visit [facility]-Emergency Department Start: 04-07-2022 End: 04-07-2022 Emergency department patient visit Balaji Nicole Facility:[facility] Start: 12-29-2021 Telephone encounter Rowena Davis MAILING MANAGER.CAFETERIA TABLE ATTENDANT Work Phone: [facility] Comment on above: Results (STD testing ) Start: 12-28-2021 Telephone encounter Zeferino Watkins mamta MAILING MANAGER.CAFETERIA TABLE ATTENDANT Work Phone: [facility] Comment on above: Results Start: 12-27-2021 End: 12-27-2021 Patient encounter procedure Kiraangeline Morin MAILING MANAGER.CAFETERIA TABLE ATTENDANT Work Phone: [facility] Comment on above: Pain with urination (Primary Dx); Penile discharge Start: 11-09-2017 End: 11-09-2017 Emergency department patient visit ANIKA VICENTE [facility] Procedures Date Procedure Procedure Detail Performing Clinician Start: 12-27-2021 Urnls dip stick/tabl et rgnt auto w/o microscopy Kira Morin MAILING MANAGER.CAFETERIA TABLE ATTENDANT Work Phone: Start: 11-09-2017 STREP SCREEN GROUP A THROAT ANIKA VICENTE Plan of Treatment Date Care Activity Detail Author Start: 04-14-2022 Influenza vaccination INFLUENZ A (Season Ended) [facility] Start: 2017 LIPID SCREEN LIPID SCREEN [facility] Start: 2001 Urine microalbumin profile DTAP,TDAP,TD (1 - Tdap) [facility] Start: 02-14-2000 [facility] Start: 02-14-2000 HIV SCREENING HIV SCREENING [facility] Start: 1994 Adult depression screening assessment DEPRESSION SCREENING [facility] Start: 1987 COVID-19 VACCINE (#1) COVID-19 VACCI NE (#1) [facility] Bacteria identified in Urine by Culture URINE CULTURE Microbiology Routine Pain with urination Ordered: 12/27/2021 [facility] Work Phone: Comment on above: Ordered: 12/27/2021 Chlamydia trachomatis+Neisseria gonorrhoeae DNA [Presence] in Urine by KATARINA with probe detection GC/CHLAMYDIA AMPLIF, URINE Microbiology Routine Pain with urination Ordered: 12/27/2021 [facility] Work Phone: Comment on above: Ordered: 12/27/2021 Patient Education Abdominal Pain [facility] Work Phone: Patient referral [facility] Work Phone: Immunizations Immunization Date Immunization Notes Care Provider Immanuel andrew 04-07-2022 tetanus toxoid, redu guillermo diphtheria toxoid, and acellular pertussis vaccine, adsorbed [facility] Payers Date Payer Category Payer Unknown [id number] 2022 Self-pay 2021 Medicaid [facility] MEDICAID [facility] [employer] MEDICAID [id number] 2021-Present [phone] [address] [place] [address] Medicaid [id number] 2017 Medicare [id number] Unknown [id number] Unknown [id number] Social History Date Type Detail Facility Start: 12-27-2021 [facility] Work Phone: Start: 12-27-2021 Tobacco use and exposure Smokeless tobacco non-user [facility] Work Phone: Start: 1980 Sex Assigned At Not on file [facility] Start: 09-24-2022 [facility] if ever smoked [facility] Start: 1980 Sex Assigned At Male [facility] Discharge summary 09-24-2022 Note Date & Type Note Facility 09-24-2022 Discharge summary Note Date/Time September 24, 2022 12:45pm [facility] Medical Records Department [address] [place] [address] Emergency Department Summary 09/24/22 MR#: [id number] Acct: [id number] Name: NATYBLOSSOM DORETHA Rep #:[id number] : 1980 42 From: Adam Joseph MD PCP: Care Physician,No Primary Status :REG ER Location: ED HPI HPI - GI History of Present Illness Chief Complaint: GI Bleed Detail of Chief Complaint: Abdominal cramping. Bright red blood with stool. Informant: patient Abdominal Pain/Flank Pain Onset: Today and Weeks Context: Gradual Onset Timing: Intermittent Quality: Cramping Location: Diffuse Current Severity: Gone Maximum Severity: Mild Worsened by: Nothing Relieved by: Nothing Nausea/Vomiting/Emesis GI Symptom: Negative for Nausea or Vomiting Diarrhea/Melena/Hematochezia GI Symptom: Positive for Diarrhea and Hematochezia Associated Symptoms Associated Symptoms: Negative for Dysuria, Frequency, Hematuria or Urgency Narrative Narrative: 42-year-old male no seen past medical or surgical history. States has had intermittent abdominal cramping for weeks. Last night he noticed a small amountof blood with loose stools. No melena. No hematemesis. No nausea or vomiting. No weight change. He has never had any abdominal surgeries. Denies any dysuria. No fever. Prior similar symptoms: Yes Recent Illness/Hospitalization: No PFSH PFSH Medical History no medical history no medical history Home Medications NK 09/24/22 [History Last Taken Unknown] Allergy/AdvReac Type Severity Reaction Status Date / Time No Known Allergies Allergy Verified 09/24/22 12:25 Family History no significant family his Surgical History History of knee surgery Social History household members: none Smoking Status: Current every day smoker tobacco type: cigarettes substance use type: does not use ROS ROS ED ROS Narrative Abdominal cramping. Diarrhea. Bright red blood per rectum small amount today. Review of Systems ROS Unobtainable: Denies due to encephalopathy Constitutional Constitutional ED: Denies chills or fever(s) ENT ENT ED: Denies ear pain Cardiovascular Cardiovascular: Denies chest pain Respiratory/Chest Respiratory/Chest: Denies cough or dyspnea Gastrointestinal Gastrointestinal: Reports abdominal pain and diarrhea; Denies constipation, melena, nausea or vomiting Genitourinary Genitourinary ED: Denies dysuria or hematuria Musculoskeletal Musculoskeletal: Denies arthralgias or back pain Integumentary Denies abscess or Abrasions Neurologic Neurologic: Denies headache(s) Psychiatric Psychiatric: Denies anxiety Endocrine Endocrinology: Denies polydipsia Hematologic/Lymphatic Hematologic/Lymphatic: Denies easy bleeding Allergic/Immunologic Allergic/Immunologic ED: Denies mouth swelling or tongue swelling EXAM Physical Exam Narrative Exam Narrative: -year-old male ambulatory distress. Vital signs stable afebrile. Right knee exam did have marked. He acknowledges an epicondylitis clear to auscultation bilaterally. Heart regular rhythm rate about 60 no murmur. Abdomen soft, nontender, nondistended, normal bowel sounds no peritoneal signs. No hernia or mass. No right upper or right lower quadrant tenderness. Moving all 4 extremities. Nontender no edema. Back nontender. Neurologically is awake alert. Normal exam. Anal exam he has 1 very small hemorrhoid that is nontender. Nonthrombosed. Not bleeding. Const Vital Signs: 09/24/22 12:24 Temperature 96.8 F L Temperature Source Temporal Pulse Rate 60 Respiratory Rate 18 Blood Pressure 128/85 H Blood Pressure Mean 99 Pulse Ox 100 Oxygen Delivery Method Room Air Positive well nourished and well developed; Negative for obese, cachectic, contractures or unkempt General Appearance ED: well developed and NAD; Negative for unkempt, cachectic, contractures or pallor Nutritional Appearance: Negative for cachectic or obese HEENT Reports moist mucous membranes; Denies dry mucous membranes normocephalic and atraumatic; Negative for trauma or tenderness Mouth ED: No dry mucous membranes Mouth: No dry mucous membranes Eyes PERRL and EOMs intact bilaterally General Eye ED: Negative for pale conjunctiva or scleral icterus Neck no lymphadenopathy, supple and no JVD General: Negative for tenderness Carotids: Negative for other Lymph Lymphatic: Negative for other Resp normal respiratory effort and clear to auscultation bilaterally Effort and Inspection: Negative for respiratory distress Auscultation: Negative for rales, rhonchi or wheezes Cardio regular rate, regular rhythm, S1 normal heart sound, S2 normal heart sound and no murmurs Rate: Negative for bradycardia or tachycardic Rhythm: Negative for abnormal rhythm GI non-tender, non-distended and no masses Inspection: Negative for abdominal distention Auscultation: normoactive bowel sounds Palpation: soft; Negative for tender, guarding, rigid, hepatomegaly, splenomegaly, hernia, mass, pulsatile mass or rebound tenderness present Back/Spine no CVA tenderness General Back: Negative for CVA tenderness Cervical Spine: Negative for cervical spine tenderness Thoracic Spine / Upper Back: Negative for thoracic spinal tenderness Lumbar Spine / Lower Back: Negative for lumbar spinal tenderness Coccyx: Negative for other Extremity full ROM General Extremety ED: Negative for edema or tenderness General Extremity: Negative for edema Neuro CN's II-XII intact bilaterally Sensorium / Orientation: alert, oriented to person, oriented to place, oriented to time and orientation impaired; Negative for confused, lethargic or stuporous Motor Exam: strength 5/5 throughout Psych mental status grossly normal and thought process normal Appearance: Negative for unkempt Attitude: No agitated Mood & Affect: Negative for depressed Skin no wounds General Skin Exam: Negative for jaundice or pallor Lesions: no lesions Rashes: no rashes Trauma: Negative for abrasion Nails: Negative for discolored MDM MDM MDM Narrative Medical decision making narrative: Young male with crampy abdominal pain. Loose stools and diarrhea and bright redblood last night. Small amount. Exam benign. Screening labs to be obtained. Patient's inflammatory bowel disease is in the differential. He does not need imaging at this time. This clinically is not appendicitis or gallbladder disease. Labs are being obtained. Repeat exam at 1:51 PM patient doing well. Abdomen is benign. He was treated with some Zofran for nausea and Toradol for discomfort. His abdomen is completely benign at this time. He and I discussed all his test results. To bedischarged home with outpatient follow-up. He has no primary care physician will be referred to [facility]. Lab Data Attestation: I reviewed the patient's lab results. Lab results narrative: CBC normal white count 6.9. H&H of 14.4 and 41. Platelets 198. Electrolytes unremarkable gap of 4 normal BUN of 10 creatinine 0.8. Normal liver enzymes. Lipase is only 59. Labs: Laboratory Results - last 24 hr 09/24/22 09/24/22 12:45 12:45 WBC 6.9 RBC 4.51 L Hgb 14.4 Hct 41.1 MCV 91.1 MCH 31.9 MCHC 35.0 RDW Std Deviation 46.2 H RDW Coeff of Daren 13.6 Plt Count 198 MPV 10.8 Immature Gran % (Auto) 0.100 Neut % (Auto) 63.3 Lymph % (Auto) 25.0 Alexander % (Auto) 9.4 Eos % (Auto) 1.9 Baso % (Auto) 0.3 Absolute Neuts (auto) 4.4 Absolute Lymphs (auto) 1.73 Nucleated RBC % 0 Sodium 141 Potassium 4.1 Chloride 109 H Carbon Dioxide 28.0 Anion Gap 4 L BUN 10 Creatinine 0.82 Estim Creat Clear Calc 120.62 Est GFR (MDRD) Af Amer 133 Est GFR (MDRD) Non-Af 110 BUN/Creatinine Ratio 12.2 Glucose 99 Calcium 8.7 Total Bilirubin 0.20 AST 14 L ALT 19 Alkaline Phosphatase 38 L Total Protein 6.7 Albumin 3.6 Globulin 3.1 Albumin/Globulin Ratio 1.2 Lipase 59 L Discharge Plan Triage Chief Complaint: GI Bleed ED Provider: Adam Joseph Dx/Rx/DC Orders Clinical Impression: Abdominal pain Instructions: Abdominal Pain Prescriptions: No Action NK Primary Care Provider: Care Physician,No Primary Referrals: Anika Knott MD [Med Staff - Independent Video Producer] - As soon as possible Care Physician,No Primary [Primary Care Provider] - Activity Restrictions/Additional Instructions: All your lab work was unremarkable today. Call and follow-up with [facility], Dr. Anika Knott's office to be set up for an appointment to obtain a primary care physician. Disposition Disposition: Home, Self Care What to do if you have Problems For any increased pain, shortness of breath, bleeding, nausea or vomiting, chestpain, or any unexpected problems, contact your Primary Care Provider. Call [facility] ([phone]) or report to the closest Emergency Room. Call 911 if necessary. 09/24/22 1355 <Electronically signed by Adam Joseph MD> Cosigner Signature (if applicable): CC: No Primary Care Physician ~ Signed [facility] Work Phone: Note 12-29-2021 Telephone Encounter - Rowena Davis APRN.CNP - 12/29/2021 10:32 AM EDT Note Date & Type Note Facility 12-29-2021 Miscellaneous Notes Patient aware of std treatment and protocol for abstinence. Rowena Davis APRN.CNP documented in this encounter [facility] Note 12-28-2021 Telephone Encounter - Zeferino Calix APRN.CNP - 12/28/2021 8:11 AM EDT Note Date & Type Note Facility 12-28-2021 Miscellaneous Notes Tested positive for gonorrhea. Called patient and informed of results. Rocephin provided at time of exam. No sex for 2 weeks Partners must be tested. Urine culture remains pending. documented in this encounter [facility] Progress note 12-27-2021 Note Date & Type Note Facility 12-27-2021 Note HNO ID: [id number] Author: Kira Morin APRN.CNP Service: ? Author Type: Nurse Practitioner Type: Progress Notes Filed: 12/27/2021 1:32 PM Note Text: Subjective HPI Nontoxic-appearing male presents urgent care chief complaint possible STD exposure. Patient states he was sexually active with a new partner 1 week ago. Did not use protection. Presents today due to new onset penile drainage. Patient states he is having white discharge and slight burning with urination. History of STDs. This feels similar. Denies any OTC medication use. Denies any fever body aches chills nausea vomiting abdominal pain. Denies any testicular pain swelling or rashes. Denies any change in bowel or bladder habit. Past medical history prescription medication use and allergies reviewed. .Patient presents with: STD: gc testing, possible exposure History reviewed. No pertinent past medical history. History reviewed. No pertinent surgical history. ALLERGIES Patient has no known allergies. MEDICATIONS No prescriptions on file. History reviewed. No pertinent family history. Social History Tobacco Use - Smoking status: Current Every Day Smoker - Smokeless tobacco: Never Used Substance Use Topics - Alcohol use: Not on file - Drug use: Not on file BP 120/72 Pulse 86 Temp 37.3 ?C (99.1 ?F) Resp 16 Wt 70.3 kg (155 lb) SpO2 97% Review of Systems Constitutional: Negative for chills, fever and malaise/fatigue. HENT: Negative for congestion, ear discharge, ear pain, sinus pain and sore throat. Eyes: Negative for blurred vision, pain, discharge and redness. Respiratory: Negative for cough, hemoptysis, sputum production, shortness of breath, wheezing and stridor. Cardiovascular: Negative for chest pain. Gastrointestinal: Negative for abdominal pain, diarrhea, nausea and vomiting. Genitourinary: Positive for dysuria. Negative for flank pain, frequency, hematuria and urgency. Musculoskeletal: Negative for myalgias. Skin: Negative for itching and rash. Neurological: Negative for dizziness and headaches. Objective Physical Exam Constitutional: General: He is not in acute distress. Appearance: He is not diaphoretic. HENT: Head: Normocephalic. Mouth/Throat: Mouth: Mucous membranes are moist. Pharynx: Oropharynx is clear. No oropharyngeal exudate or posterior oropharyngeal erythema. Eyes: Conjunctiva/sclera: Conjunctivae normal. Pupils: Pupils are equal, round, and reactive to light. Cardiovascular: Rate and Rhythm: Normal rate and regular rhythm. Heart sounds: Normal heart sounds. Pulmonary: Effort: Pulmonary effort is normal. No tachypnea, accessory muscle usage or respiratory distress. Breath sounds: Normal breath sounds. No stridor. Abdominal: Palpations: Abdomen is soft. Tenderness: There is no abdominal tenderness. Genitourinary: Penis: Discharge present. Testes: Normal. Right: Tenderness or swelling not present. Left: Tenderness or swelling not present. Epididymis: Right: Normal. Left: Normal. Musculoskeletal: Cervical back: Normal range of motion and neck supple. No rigidity or tenderness. Lymphadenopathy: Cervical: No cervical adenopathy. Skin: General: Skin is warm and dry. Neurological: Mental Status: He is alert and oriented to person, place, and time. ASSESSMENT/PLAN: 1. Pain with urination - ICD9: 788.1, ICD10: R30.9 (primary diagnosis) - UA DIP, URINE (POC) - GC/CHLAMYDIA AMPLIF, URINE - CEFTRIAXONE 500 MG SOLUTION FOR INJECTION - URINE CULTURE 2. Penile discharge - ICD9: 788.7, ICD10: R36.9 Urine indicated small amount of blood and leukocytes. With patient's penile drainage and unprotected sexual intercourse patient will be placed on doxycycline and Rocephin. 500 Rocephin administered in office. Patient was educated on supportive therapies. Patient will follow up with primary care provider as needed. Patient was instructed to immediately proceed to emergency room for any new, worsening, or symptoms lasting longer than anticipated. The patient's clinical presentation is otherwise unremarkable at this time. Based on exam and clinical finding, the patient is stable for discharge. Plan of care was discussed with patient. Patient verbalizes understanding and agrees to plan of care. This note was generated using IM-Sense software. It may contain errors in wording, punctuation, or spelling. Kira Morin APRN.BRADEN [facility] History of Present illness Narrative 12-27-2021 Kira Morin APRN.BRADEN - 12/27/2021 1:08 PM EDT Note Date & Type Note Facility 12-27-2021 History of Presen t illness Narrative Subjective HPI Nontoxic-appearing male presents urgent care chief complaint possible STD exposure. Patient states he was sexually active with a new partner 1 week ago. Did not use protection. Presents today due to new onset penile drainage. Patient states he is having white discharge and slight burning with urination. History of STDs. This feels similar. Denies any OTC medication use. Denies any fever body aches chills nausea vomiting abdominal pain. Denies any testicular pain swelling or rashes. Denies any change in bowel or bladder habit. Past medical history prescription medication use and allergies reviewed. .Patient presents with: STD: gc testing, possible exposure History reviewed. No pertinent past medical history. History reviewed. No pertinent surgical history. ALLERGIES Patient has no known allergies. MEDICATIONS No prescriptions on file. History reviewed. No pertinent family history. Social History Tobacco Use Smoking status: Current Every Day Smoker Smokeless tobacco: Never Used Substance Use Topics Alcohol use: Not on file Drug use: Not on file BP 120/72 Pulse 86 Temp 37.3 C (99.1 F) Resp 16 Wt 70.3 kg (155 lb) SpO2 97% Review of Systems Constitutional: Negative for chills, fever and malaise/fatigue. HENT: Negative for congestion, ear discharge, ear pain, sinus pain and sore throat. Eyes: Negative for blurred vision, pain, discharge and redness. Respiratory: Negative for cough, hemoptysis, sputum production, shortness of breath, wheezing and stridor. Cardiovascular: Negative for chest pain. Gastrointestinal: Negative for abdominal pain, diarrhea, nausea and vomiting. Genitourinary: Positive for dysuria. Negative for flank pain, frequency, hematuria and urgency. Musculoskeletal: Negative for myalgias. Skin: Negative for itching and rash. Neurological: Negative for dizziness and headaches. Objective Physical Exam Constitutional: General: He is not in acute distress. Appearance: He is not diaphoretic. HENT: Head: Normocephalic. Mouth/Throat: Mouth: Mucous membranes are moist. Pharynx: Oropharynx is clear. No oropharyngeal exudate or posterior oropharyngeal erythema. Eyes: Conjunctiva/sclera: Conjunctivae normal. Pupils: Pupils are equal, round, and reactive to light. Cardiovascular: Rate and Rhythm: Normal rate and regular rhythm. Heart sounds: Normal heart sounds. Pulmonary: Effort: Pulmonary effort is normal. No tachypnea, accessory muscle usage or respiratory distress. Breath sounds: Normal breath sounds. No stridor. Abdominal: Palpations: Abdomen is soft. Tenderness: There is no abdominal tenderness. Genitourinary: Penis: Discharge present. Testes: Normal. Right: Tenderness or swelling not present. Left: Tenderness or swelling not present. Epididymis: Right: Normal. Left: Normal. Musculoskeletal: Cervical back: Normal range of motion and neck supple. No rigidity or tenderness. Lymphadenopathy: Cervical: No cervical adenopathy. Skin: General: Skin is warm and dry. Neurological: Mental Status: He is alert and oriented to person, place, and time. ASSESSMENT/PLAN: 1. Pain with urination - ICD9: 788.1, ICD10: R30.9 (primary diagnosis) - UA DIP, URINE (POC) - GC/CHLAMYDIA AMPLIF, URINE - CEFTRIAXONE 500 MG SOLUTION FOR INJECTION - URINE CULTURE 2. Penile discharge - ICD9: 788.7, ICD10: R36.9 Urine indicated small amount of blood and leukocytes. With patient's penile drainage and unprotected sexual intercourse patient will be placed on doxycycline and Rocephin. 500 Rocephin administered in office. Patient was educated on supportive therapies. Patient will follow up with primary care provider as needed. Patient was instructed to immediately proceed to emergency room for any new, worsening, or symptoms lasting longer than anticipated. The patient's clinical presentation is otherwise unremarkable at this time. Based on exam and clinical finding, the patient is stable for discharge. Plan of care was discussed with patient. Patient verbalizes understanding and agrees to plan of care. This note was generated using Dragon software. It may contain errors in wording, punctuation, or spelling. Kira Morin APRN.BRADEN documented in this encounter [facility] Evaluation note Note Date & Type Note Facility Evaluation note Diagnosis Pain with urination- Primary Renal colic Penile discharge Urethral discharge documented in this encounter [facility] Evaluation note Note Date & Type Note Facility Evaluation note No assessment information availa ble [facility] Work Phone: Hospital Discharge instructions Note Date & Type Note Facility Hospital Discharge instructions Additional Instructions All your lab work was unremarkable today. Call and follow-up with [facility], Dr. Anika Knott's office to be set up for an appointment to obtain a primary care physician. [facility] Work Phone: Summary Purpose Family History No Family History Records FoundNo Family History Records FoundNo Family History Records Found Advance Directives No Advanced Directives Records Found Advance Directive Response Recorded Date/ Time Living Will No September 24 023 12:36pm Power of Personal Care Assistant No September 24, 2022 12:36pm Medications Administered Section Inactive Administered Medications - up to 3 most recent administrations Medication Order MAR Action Action Date Dose Rate Site cefTRIAXone 500 mg intramuscular injection (ROCEPHIN) 500 mg, INTRAMUSCULAR, ONCE, 1 dose, On 12/27/21 at 1330, Please document the antimicrobial indication: Empiric Given 12/27/2021 1:24 PM EDT 500 mg Buttocks, Right Chief Complaint and Reason for Visit Chief Complaint GI BLEED Additional Source Comments (unrecognized sect ion and content) No Status Records FoundNo Status Records FoundNo Status Records Found INFORMATION SOURCE (unrecogn ized section and content) DATE CREATED AUTHOR 02/01/2018 [facility] DATE CREATED AUTHOR AUTHOR'S ORGANIZ ATION 12/30/2021 [facility] DATE CREATED AUTHOR AUTHOR'S ORGANIZ ATION 10/05/2022 [facility] Source Comments (unrecognize d section and content) In the event this informatio n is protected by the Federal Confidentiality of Alcohol and Drug Abuse Patient Records regulations: The Federal rules restrict any use of the information to criminally investigate or prosecute any alcohol or drug abuse patient.[facility] the event this information is protected by the Federal Confidentiality of Alcohol and Drug Abuse Patient Records regulations: The Federal rules restrict any use of the information to criminally investigate or prosecute any alcohol or drug abuse patient.[facility] the event this information is protected by the Federal Confidentiality of Alcohol and Drug Abuse Patient Records regulations: The Federal rules restrict any use of the information to criminally investigate or prosecute any alcohol or drug abuse patient.[facility] Reason for Visit (unrecogniz ed section and content) Reason Comments STD gc testing, possible exposure Reason Comments Results Reason Comments Results STD testing Care Teams (unrecognized sec tion and content) Team Status: Active Member Role Status Dates No Primary Care Physician Primary Care Provider Active Team Status: Inactive Member Role Status Dates No Primary Care Physician Primary Care Provider Active Dr. Adam Joseph MD Emergency Provider Active Goals (unrecognized section and content) Goals may be documented in a n alternate section FOR RECORDS PERTAINING TO PATIENTS WHO ARE OR HAVE BEEN ENROLLED IN A CHEMICAL DEPENDENCY/SUBSTANCEABUSE PROGRAM, SOME INFORMATION MAY BE OMITTED. This clinical summary was aggregated from multiple sources. Caution should be exercised in using it in the provision of clinical care. This summary normalizes information from multiple sources, and as a consequence, information in this document may materially change the coding, format and clinical context of patient data. In addition, data may be omitted in some cases. CLINICAL DECISIONS SHOULD BE BASED ON THE PRIMARY CLINICAL RECORDS. [employer] [facility]. provides no warranty or guarantee of the accuracy or completeness of information in this document.
[2025-08-13 17:26] VITALS: BP 111/76; PULSE 74; RESP 14; TEMP 36.5; O2SAT 98
== END 2025-08-13 17:27 | disposition home or self-care (01) ==
LOC: ED 17:08
PROVIDERS: Emergency Provider Emergency Medicine; Visit Provider Emergency Medicine
DX: K62.5 Hemorrhage of anus and rectum (principal); K64.4 Residual hemorrhoidal skin tags; F17.210 Nicotine dependence, cigarettes, uncomplicated
CPT/HCPCS: 99282